=== PATIENT | male | born 2000 | race Caucasian/White ===

== ENCOUNTER 2022-11-03 16:57 | Emergency (ER) | payer BC, SELFPAY ==
[2022-11-03 17:00] VITALS: BP 140/80; PULSE 87; RESP 19; TEMP 37; O2SAT 98
--- NOTE | 2022-11-03 17:23 | ED_ITS ---
HPI - General Adult General Chief complaint: Wound/Laceration Stated complaint: Cyst Time Seen by Provider: 11/03/22 17:03 Source: patient History of Present Illness HPI narrative: 21-year-old male presenting with pilonidal cyst. Patient states he was diagnosed with a pilonidal cyst 2 days ago and that was drained at an urgent care. He states he was started on had a Bactrim as well. He presents complaining of increased pain and continued drainage from the area. Related Data Allergies Allergy/AdvReac Type Severity Reaction Status Date / Time No Known Allergies Allergy Verified 11/03/22 17:18 Exam Narrative: Incision noted at a cystic structure that is consistent with pilonidal cyst. Drainage noted. No increased warmth. No surrounding erythema. All other systems otherwise unremarkable or negative. Course Vital Signs Vital signs: Vital Signs Temperature 37.0 C 11/03/22 17:00 Pulse Rate 87 11/03/22 17:00 Respiratory Rate 11/03/22 17:00 Blood Pressure 140/80 11/03/22 17:00 Pulse Oximetry 98 11/03/22 17:00 Oxygen Delivery Room Air 11/03/22 17:00 Temperature 37.0 C 11/03/22 17:00 Pulse Rate 87 11/03/22 17:00 Respiratory Rate 11/03/22 17:00 Blood Pressure 140/80 11/03/22 17:00 Pulse Oximetry 98 11/03/22 17:00 Oxygen Delivery Room Air 11/03/22 17:00 Medical Decision Making [facility] Narrative Medical decision making narrative: The incision was reopened after Numbing the area. It was then drained and packed. Will change the antibiotic to clindamycin. When patient follow-up with surgeon. He was given strict return precautions and follow-up instructions. He felt safe to proceed outpatient management. Vital Signs Vital Signs: Vital Signs Temperature 37.0 C 11/03/22 17:00 Pulse Rate 87 11/03/22 17:00 Respiratory Rate 11/03/22 17:00 Blood Pressure 140/80 11/03/22 17:00 Pulse Oximetry 98 11/03/22 17:00 Oxygen Delivery Room Air 11/03/22 17:00 Temperature 37.0 C 11/03/22 17:00 Pulse Rate 87 11/03/22 17:00 Respiratory Rate 11/03/22 17:00 Blood Pressure 140/80 11/03/22 17:00 Pulse Oximetry 98 11/03/22 17:00 Oxygen Delivery Room Air 11/03/22 17:00 Discharge Plan Discharge Clinical Impression: Cyst, pilonidal, with abscess Patient Disposition: Home, Self-Care Condition: Stable Instructions: Antibiotic Form, Abscess Incision and Drainage (DC) Additional Instructions: Follow-up with the surgeon you were provided referral for. Take the antibiotic I have prescribed you as written to completion. Return to emergency department with any concerns. Prescriptions: New clindamycin HCl 150 mg capsule 450 mg PO TID 10 Days Qty: 90 0RF ketorolac 10 mg tablet 10 mg PO Q6H PRN (Reason: pain) 5 Days Qty: 12 0RF Follow-up/Referrals: PHYSICIAN,VASCULAR ULTRASOUND TECHNICIAN [Non-Staff] - Time of Disposition: 17:28
[2022-11-03] MEDS: KETOROLAC 30 MG/ML VIAL (*BKC) IM (17:29)
[2022-11-03 17:49] VITALS: BP 128/72; PULSE 82; RESP 20; TEMP 36.7; O2SAT 98
== END 2022-11-03 17:59 | disposition home or self-care (01) ==
PROVIDERS: Emergency Provider Emergency Medicine
DX: L05.01 Pilonidal cyst with abscess (principal)
CPT/HCPCS: 96372; 99283; J1885

== ENCOUNTER 2024-07-23 19:50 | Emergency (ER) | payer SELFPAY ==
--- NOTE | 2024-07-23 19:52 | ED.SKABFB ---
HPI - Skin/Abscess/Foreign Bdy General Chief complaint: Skin/Abscess/Foreign Body Stated complaint: Bug Bite Source: patient and RN notes reviewed Mode of arrival: ambulatory Limitations: no limitations History of Present Illness HPI narrative: Patient is a 23-year-old male who presents to the [facility] with complaints of possible bug bite to his right lateral upper leg. He presents with a small raised red in follow-up to his right lateral upper leg with no surrounding erythema or swelling. It is not warm to the touch. He denies recent fevers. Related Data Home Medications ?Medication ?Instructions ?Recorded ?Confirmed ?Last Taken ?Type No Home Medications 12/11/22 12/11/22 Unknown History Allergies Allergy/AdvReac Type Severity Reaction Status Date / Time No Known Allergies Allergy Verified 07/23/24 19:53 Review of Systems Review of Systems: CONSTITUTIONAL: Denies fever, chills, or sweats. EYES: Denies visual changes, redness, or discharge. ENT: Denies otalgia and sore throat CARDIOVASCULAR: Denies chest pain, palpitations, or edema. RESPIRATORY: Denies cough or dyspnea. GASTROINTESTINAL: Denies abdominal pain, nausea, vomiting, or diarrhea. GENITOURINARY: Denies dysuria or hematuria. SKIN: Reports possible insect bite to the right lateral upper leg. MUSCULOSKELETAL: Denies back pain, joint pain, or myalgia. NEUROLOGIC: Denies headache, numbness, or weakness. Pertinent positives per HPI. PMFSH Surgical History Surgical History History of appendectomy Social History Social History Smoking status: Never smoker Alcohol intake: current Occupation/Education: student Comments At the time of my signature, I reviewed and agree with the nursing past medical, surgical, social, and family history. There is no relevant family history pertinent to the patient complaint. Exam Narrative: GENERAL: This is a well-nourished, well-developed patient, in no apparent distress. HEAD: normocephalic, atraumatic. EYES: Sclera clear/white. Vision is grossly intact. EARS: External ears normal. Hearing grossly intact. NOSE: External nose normal with no obvious nasal discharge, nares without redness, no rhinorrhea. THROAT: Mucous membranes moist, posterior pharynx clear. NECK: Neck supple, non-tender without lymphadenopathy, masses or thyromegaly. CARDIOVASCULAR: Regular rate and rhythm without murmurs, gallops, or rubs. RESPIRATORY: Clear to auscultation. Breath sounds equal bilaterally. No wheezes, rales, or rhonchi. GASTROINTESTINAL: Abdomen soft, non-tender, nondistended. Bowel sounds are active. No hepato-splenomegaly, or palpable masses. No guarding. SKIN: <0.5 cm reddened, raised bump to right lateral upper leg with no surrounding erythema, warmth, or swelling. NEURO: awake, alert, and oriented to person, place and time. There were no obvious focal neurologic abnormalities. Course Course Level of Care: Express Care Visit Vital Signs Vital signs: Vital Signs Temperature 97.9 F 07/23/24 19:53 Pulse Rate 91 07/23/24 19:53 Respiratory Rate 16 07/23/24 19:53 Blood Pressure 130/79 07/23/24 19:53 Pulse Oximetry 99 07/23/24 19:53 Oxygen Delivery Room Air 07/23/24 19:53 Temperature 97.9 F 07/23/24 19:53 Pulse Rate 91 07/23/24 19:53 Respiratory Rate 16 07/23/24 19:53 Blood Pressure 130/79 07/23/24 19:53 Pulse Oximetry 99 07/23/24 19:53 Oxygen Delivery Room Air 07/23/24 19:53 Reviewed MDM - Skin/Abscess/Foreign Bdy MDM Narrative Medical decision making narrative: Clean with soap and water only; Avoid using alcohol and peroxide. Elevate the affected area if possible Alternate Tylenol/ibuprofen for as needed for pain Acetaminophen(Tylenol) 650-1000mg every 4-6hours with max of 4000mg/day. Nonsteroidal anti-inflammatory agent (NSAIDs-ibuprofen): 400mg every 4-6hours with max 2400mg/day Please schedule a follow up visit with your personal physician for further evaluation and treatment within 3-5days OR if your symptoms persist, change or worsen significantly before you can contact your personal physician then please, without delay, go to the emergency department for further evaluation. Differential Diagnosis Differential diagnosis: Likely abscess of skin or subcutaneous tissue, cellulitis and insect bites Critical Care Time Critical Care Time Critical Care Time: No Discharge Plan Discharge Clinical Impression: Insect bite of leg, right Patient Disposition: Home Condition: Stable Instructions: Insect Bite or Sting (ED) Additional Instructions: Clean with soap and water only; Avoid using alcohol and peroxide. Elevate the affected area if possible Alternate Tylenol/ibuprofen for as needed for pain Acetaminophen(Tylenol) 650-1000mg every 4-6hours with max of 4000mg/day. Nonsteroidal anti-inflammatory agent (NSAIDs-ibuprofen): 400mg every 4-6hours with max 2400mg/day Please schedule a follow up visit with your personal physician for further evaluation and treatment within 3-5days OR if your symptoms persist, change or worsen significantly before you can contact your personal physician then please, without delay, go to the emergency department for further evaluation. Patient Language: Indonesian Prescriptions: No Action No Home Medications Follow-up/Referrals: PHYSICIAN,EMOTIONALLY IMPAIRED TEACHER [Primary Care Provider] - Time of Disposition: 19:57
[2024-07-23 19:53] VITALS: BP 130/79; PULSE 91; RESP 16; TEMP 36.6; O2SAT 99
== END 2024-07-23 19:58 | disposition home or self-care (01) ==
PROVIDERS: Emergency Provider Nurse Practitioner
DX: S70.361A Insect bite (nonvenomous), right thigh, initial encounter (principal); W57.XXXA Bitten or stung by nonvenomous insect and other nonvenomous arthropods, initial encounter
CPT/HCPCS: 99211; G0463